=== PATIENT | female | born 1965 | race Caucasian/White ===

== ENCOUNTER → 2017-01-12 | Outpatient (CLI) | payer OTHER ==
[~2017-01-12] MED LIST: PROM-190 PO; TYLE500T78 PO
--- NOTE | 2017-01-12 12:39 | REPMRS ---
Patient History The patient states she had a clinical breast exam in October 2016.Patient is postmenopausal. Family history of unknown cancer in mother at age 64, colorectal cancer in brother at age 53, and prostate cancer in brother at age 53. Took unspecified hormones for 10 years. Indicated problem(s): pain in the right breast. Digital Mammo Diagnostic Bilateral: January 12, 2017 - Exam #: [id number] Bilateral CC and MLO view(s) were taken. Technologist: Carla Ramirez, Technologist Prior study comparison: September 23, 2013, bilateral bilat screen digital mammo, performed at [facility] ([facility]). July 28, 2012, right breast digital mammo diagnostic unilateral performed at [facility]. FINDINGS: There are scattered fibroglandular densities. There has been no change in the appearance of the mammogram from the prior studies. There are two nodules in the upper outer quadrant right breast which are stable from the July 09, 2012 prior mammography. There is a mild amount of scattered fibroglandular density which is fairly symmetric. There is no interval development of dominant mass, architectural distortion, or clustered microcalcification suggestive of malignancy. ASSESSMENT: BI-RADS/ACR category 1 mammogram. Negative. Recommendation Routine screening mammogram in 1 year (for women over age 40). This mammogram was interpreted with the aid of an FDA-approved computer-aided dectection system. Electronically Signed By: Pavel Osorio MD 01/12/17 [id number]
== END ==
LOC: M RAD 11:12
PROVIDERS: ATTEND Nurse Practitioner
DX: Z12.31 Encounter for screening mammogram for malignant neoplasm of breast (principal)

== ENCOUNTER → 2021-02-05 | Outpatient (REF) | payer OTHER | LOC: M SFHCCLAY 15:41 | PROVIDERS: ATTEND Physician Assistant | DX: R05 Cough (principal) ==

== ENCOUNTER → 2021-05-17 | Outpatient (CLI) | payer OTHER ==
--- NOTE | 2021-05-17 16:11 | REP ---
INDICATION: IMPINGEMENT SYNDROM OF SHOULDER. COMPARISON: None. TECHNIQUE: Neutral, internal rotation, external rotation, axillary and Y-view of the right shoulder FINDINGS: Very minimal inferior spurring at the acromioclavicular joint noted. The subacromial space measures 7.3 mm on neutral view. No periarticular calcifications or loose bodies are identified. The glenohumeral joint appears intact and normal. No evidence for acute fracture or dislocation. IMPRESSION: Mild degenerative changes as noted above. <Electronically signed by Job Pierson > 05/17/21 [id number]
== END ==
LOC: M SOG 15:47
PROVIDERS: ATTEND Orthopaedic Surgery Sports Medicine
DX: M75.41 Impingement syndrome of right shoulder (principal)

== ENCOUNTER → 2021-05-26 | Outpatient (CLI) | payer OTHER ==
--- NOTE | 2021-05-27 09:37 | REP ---
INDICATION: IMPINGEMENT SYNDROME OF RT SHOULDER. COMPARISON: Comparison right shoulder radiographs May 17, 2021. TECHNIQUE: Axial, oblique coronal, and oblique sagittal imaging planes utilized. T1 in T2 weighted scans are included with without fat saturation. FINDINGS: There is a large subacromial subdeltoid bursal effusion. No glenohumeral joint effusion is evident. There is a curvilinear 8 mm filling defect on T2 weighted scans within the subacromial subdeltoid bursal fluid consistent with proteinaceous debris. Cortical and medullary bone signal intensity is normal. There is minimal osteoarthritic hypertrophy at the acromioclavicular joint. There is however moderate spurring along the inferolateral margin of the acromion process. There is mild swelling and moderate increased signal intensity on oblique coronal T1 weighted scans in the distal supraspinatus tendon consistent with advanced tendinosis. No focal T2 hyperintense lesion is seen to suggest a focal cuff tear. Subscapularis and infraspinatus tendons appear intact. Biceps tendon is unremarkable. No glenoid labral tear is appreciated. IMPRESSION: There is a large subacromial subdeltoid bursal effusion and moderate spurring is seen along the inferior and lateral margin of the acromion process. There is supraspinatus tendinosis. <Electronically signed by Pavel Osorio > 05/27/21 [id number]
== END ==
LOC: M RAD 12:29
PROVIDERS: ATTEND Orthopaedic Surgery Sports Medicine
DX: M75.41 Impingement syndrome of right shoulder (principal)

== ENCOUNTER → 2022-07-23 | Outpatient (REF) | payer OTHER | LOC: M SFHCCLAY 14:42 | PROVIDERS: ATTEND Physician Assistant | DX: R30.0 Dysuria (principal) ==

== ENCOUNTER → 2023-03-10 | Outpatient (REF) | payer OTHER ==
[2023-03-10 11:58] LABS: ALBUMIN 3.8 G/DL (3.2-5.2); ALKALINE PHOSPHATASE 96 U/L (46-116); ALT/SGPT 31 U/L (7.0-40); AST/SGOT 17 U/L (<34); BASO % 0.7 % (0.0-1.0); BILIRUBIN,TOTAL 0.5 MG/DL (0.3-1.2); BLOOD UREA NITROGEN 14 MG/DL (9-23); CALCIUM LEVEL 8.8 MG/DL (8.5-10.1); CARBON DIOXIDE LEVEL 30 MMOL/L (20-31); CHLORIDE LEVEL 110 MMOL/L (98-107); CHOLESTEROL LEVEL 197 MG/DL (<200); CHOLESTEROL RISK RATIO 3.88 (<5); CREATININE FOR GFR 0.75 MG/DL (0.55-1.30); EOS # 0.3 10^3/uL (0.0-0.5); EOS % 5.9 % (0.0-3.0); GLOMERULAR FILTRATION RATE > 60.0 (>51); GLUCOSE, FASTING 89 MG/DL (60-100); HDL CHOLESTEROL 50.7 MG/DL (>40); HEMATOCRIT 39.7 % (36.0-47.0); HEMOGLOBIN 13.2 g/dl (12.0-15.5); LDL CHOLESTEROL 130.1 MG/DL (<100); LYMPH % 43.4 % (24.0-44.0); MEAN CORPUSCULAR HEMOGLOBIN 30.8 pg (27.0-33.0); MEAN CORPUSCULAR HGB CONC 33.2 g/dl (32.0-36.5); MEAN CORPUSCULAR VOLUME 92.5 fl (80.0-96.0); MONO # 0.4 10^3/uL (0.0-0.8); MONO % 9.2 % (2.0-8.0); NEUTROPHILS # 1.9 10^3/uL (1.5-8.5); NEUTROPHILS % 40.6 % (36.0-66.0); NON-HDL-C 146.3 MG/DL; PLATELET COUNT, AUTOMATED 318 10^3/uL (150-450); POTASSIUM SERUM 4.1 MMOL/L (3.5-5.1); RED BLOOD COUNT 4.29 10^6/uL (4.00-5.40); SODIUM LEVEL 143 MMOL/L (136-145); TOTAL PROTEIN 6.3 G/DL (5.7-8.2); TRIGLYCERIDES LEVEL 81 MG/DL (<150); WHITE BLOOD COUNT 4.6 10^3/uL (4.0-10.0)
[2023-03-10 12:00] LABS: THYROID STIMULATING HORMONE 3.848 uIU/ML (0.55-4.78)
[2023-03-10 12:01] LABS: FREE T4 0.78 NG/DL (0.89-1.76)
== END ==
LOC: M SFHCCLAY 08:46
PROVIDERS: ATTEND Nurse Practitioner Family
DX: E03.9 Hypothyroidism, unspecified (principal); E78.00 Pure hypercholesterolemia, unspecified; G43.009 Migraine without aura, not intractable, without status migrainosus

== ENCOUNTER → 2023-05-04 | Outpatient (CLI) | payer OTHER | LOC: M WHC 14:38 | PROVIDERS: ATTEND Nurse Practitioner Family | DX: Z12.31 Encounter for screening mammogram for malignant neoplasm of breast (principal) ==

== ENCOUNTER → 2023-05-19 | Outpatient (CLI) | payer OTHER | LOC: M WHC 12:55 | PROVIDERS: ATTEND Nurse Practitioner Family | DX: Z12.31 Encounter for screening mammogram for malignant neoplasm of breast (principal) ==

== ENCOUNTER → 2023-07-08 | Outpatient (REF) | payer OTHER | LOC: M SFHCCAPE 17:22 | PROVIDERS: ATTEND Physician Assistant Medical | DX: R10.2 Pelvic and perineal pain (principal) ==

== ENCOUNTER → 2023-07-24 | Outpatient (CLI) | payer OTHER | LOC: M WHC 12:01 | PROVIDERS: ATTEND Nurse Practitioner Family | DX: R10.31 Right lower quadrant pain (principal) ==

== ENCOUNTER → 2024-03-09 | Outpatient (REF) | payer OTHER | LOC: M SFHCCLAY 16:44 | PROVIDERS: ATTEND Nurse Practitioner Family | DX: R30.0 Dysuria (principal) ==

== ENCOUNTER → 2024-04-04 | Outpatient (CLI) | payer OTHER | LOC: M RAD 14:09 | PROVIDERS: ATTEND Physician Assistant | DX: N23 Unspecified renal colic (principal); N13.30 Unspecified hydronephrosis ==

== ENCOUNTER → 2024-04-08 | Outpatient (REF) | payer OTHER ==
[2024-04-08 18:00] LABS: APPEARANCE, URINE CLEAR (CLEAR); BACTERIA, URINE AUTO NEGATIVE (NEGATIVE); BILIRUBIN, URINE AUTO NEGATIVE (NEGATIVE); BLOOD, URINE BLOOD 1+ (NEGATIVE); COLOR, URINE YELLOW (YELLOW); GLUCOSE, URINE (UA) AUTO NEGATIVE (NEGATIVE); KETONE, URINE AUTO NEGATIVE (NEGATIVE); LEUKOCYTE ESTERASE, URINE AUTO TRACE (NEGATIVE); MUCUS, URINE SMALL (NEGATIVE); NITRITE, URINE AUTO NEGATIVE (NEGATIVE); PROTEIN, URINE AUTO NEGATIVE (NEGATIVE); RBC, URINE AUTO 4 /HPF (0-3); SPECIFIC GRAVITY URINE AUTO 1.017 (1.002-1.035); SQUAMOUS EPITHELIAL CELL UR AU 1 /HPF (0-6); UROBILINOGEN, URINE AUTO 0.2 mg/dL (0.0-2.0); WBC, URINE AUTO 4 /HPF (0-3)
== END ==
LOC: M SMT 17:10
PROVIDERS: ATTEND Urology
DX: N28.9 Disorder of kidney and ureter, unspecified (principal)

== ENCOUNTER → 2024-05-03 | Outpatient (CLI) | payer OTHER ==
[~2024-05-03] MED LIST changes: +ISOVUE-370 76% 100ML VIAL As Ordered ONE
== END ==
LOC: M RAD 08:32
PROVIDERS: ATTEND Urology
DX: N28.9 Disorder of kidney and ureter, unspecified (principal)
CPT/HCPCS: 74177; Q9967

== ENCOUNTER → 2024-05-20 | Outpatient (CLI) | payer OTHER | LOC: M RAD 07:28 | PROVIDERS: ATTEND Urology | DX: R91.1 Solitary pulmonary nodule (principal) | CPT/HCPCS: 71260; Q9967 ==

== ENCOUNTER → 2024-11-28 | Outpatient (REF) | payer OTHER ==
[~2024-11-28] MED LIST changes: -ISOVUE-370 76% 100ML VIAL As Ordered ONE
[2024-11-28 17:33] LABS: BASO % 0.5 % (0.0-1.0); EOS # 0.3 10^3/uL (0.0-0.5); EOS % 5.2 % (0.0-3.0); HEMATOCRIT 40.2 % (36.0-47.0); HEMOGLOBIN 13.1 g/dl (12.0-15.5); LYMPH # 2.3 10^3/uL (1.5-5.0); LYMPH % 37.3 % (24.0-44.0); MEAN CORPUSCULAR HEMOGLOBIN 30.3 pg (27.0-33.0); MEAN CORPUSCULAR HGB CONC 32.6 g/dl (32.0-36.5); MEAN CORPUSCULAR VOLUME 93.1 fl (80.0-96.0); MONO # 0.4 10^3/uL (0.0-0.8); MONO % 7.1 % (2.0-8.0); NEUTROPHILS # 3.1 10^3/uL (1.5-8.5); NEUTROPHILS % 49.7 % (36.0-66.0); PLATELET COUNT, AUTOMATED 371 10^3/uL (150-450); RED BLOOD COUNT 4.32 10^6/uL (4.00-5.40); WHITE BLOOD COUNT 6.2 10^3/uL (4.0-10.0)
[2024-11-28 18:01] LABS: ALBUMIN 3.8 G/DL (3.2-5.2); ALKALINE PHOSPHATASE 94 U/L (35-104); ALT/SGPT 26 U/L (7.0-40); AST/SGOT 22 U/L (<34); BILIRUBIN,TOTAL 0.3 MG/DL (0.3-1.2); BLOOD UREA NITROGEN 12 MG/DL (9-23); CALCIUM LEVEL 9.5 MG/DL (8.3-10.6); CARBON DIOXIDE LEVEL 30 MMOL/L (20-31); CHLORIDE LEVEL 109 MMOL/L (98-107); CHOLESTEROL LEVEL 206 MG/DL (<200); CHOLESTEROL RISK RATIO 3.71 (<5); CREATININE FOR GFR 0.86 MG/DL (0.55-1.30); GLOMERULAR FILTRATION RATE > 60.0 (>45); GLUCOSE, FASTING 78 MG/DL (74-106); HDL CHOLESTEROL 55.4 MG/DL (>40); LDL CHOLESTEROL 109.6 MG/DL (<100); NON-HDL-C 150.6 MG/DL; POTASSIUM SERUM 4.2 MMOL/L (3.5-5.1); SODIUM LEVEL 145 MMOL/L (136-145); TOTAL PROTEIN 6.9 G/DL (5.7-8.2); TRIGLYCERIDES LEVEL 205 MG/DL (<150)
[2024-11-28 18:02] LABS: THYROID STIMULATING HORMONE 3.404 uIU/ML (0.55-4.78)
[2024-11-28 18:03] LABS: TOTAL 25(OH) VITAMIN D 32.9 NG/ML (20.0-100.0)
== END ==
LOC: M SFHCCLAY 14:48
PROVIDERS: ATTEND Nurse Practitioner Family
DX: Z87.898 Personal history of other specified conditions (principal); E03.9 Hypothyroidism, unspecified; G43.009 Migraine without aura, not intractable, without status migrainosus; E78.00 Pure hypercholesterolemia, unspecified; N28.89 Other specified disorders of kidney and ureter

== ENCOUNTER → 2024-12-02 | Outpatient (CLI) | payer OTHER ==
[~2024-12-02] MED LIST changes: +ISOVUE-370 76% 100ML VIAL As Ordered ONE
== END ==
LOC: M RAD 12:59
PROVIDERS: ATTEND Urology
DX: D30.02 Benign neoplasm of left kidney (principal)
CPT/HCPCS: 74170; Q9967

== ENCOUNTER → 2025-01-17 | Outpatient (CLI) | payer OTHER ==
[~2025-01-17] MED LIST changes: -ISOVUE-370 76% 100ML VIAL As Ordered ONE
== END ==
LOC: M WHC 12:27
PROVIDERS: ATTEND Nurse Practitioner Family
DX: Z00.00 Encounter for general adult medical examination without abnormal findings (principal); Z12.31 Encounter for screening mammogram for malignant neoplasm of breast

== ENCOUNTER → 2025-01-31 | Outpatient (CLI) | payer OTHER | LOC: M RAD 09:36 | PROVIDERS: ATTEND Nurse Practitioner Family | DX: K80.20 Calculus of gallbladder without cholecystitis without obstruction (principal) ==